=== PATIENT | female | born 1945 | race Caucasian/White ===

== ENCOUNTER 2017-09-18 06:45 | Observation (INO) | payer MEDICARE, BC ==
[~2017-09-18] VITALS: Ht 170.2 cm; Wt 54.0 kg
[2017-09-18 00:20] VITALS: BP 131/77
--- NOTE | 2017-09-18 07:00 | NUR ---
PT IMMEDIATELY TO TX ROOM VIA WC.
[2017-09-18] MEDS ORDERED: METO50TA52 PO (07:05)
[2017-09-18] MEDS ORDERED: ISOSORB MONO30 MG PO (07:06)
[2017-09-18] MEDS ORDERED: INDERAL 40MG TA40 MG PO (07:07)
[2017-09-18] MEDS ORDERED: VITAMIN C1000 MG PO (07:07)
[2017-09-18] MEDS ORDERED: ECK MAGNESIU250 MG PO (07:08)
[2017-09-18] MEDS ORDERED: [UNRECOGNIZED DRUG - OTHER] PO (07:08)
[2017-09-18] MEDS ORDERED: MEDDOSEPAK PO (07:09)
[2017-09-18] MEDS ORDERED: PROAIR HFA108 MCG/AC IN (07:10)
--- NOTE | 2017-09-18 07:15 | NUR ---
RT AT BEDSIDE WITH PT FOR NEB TX, ABG DRAWN. PT IS TACHYPNEIC, SPO2 96% ON ROOM AIR, NOTED WHEEZING IN RIGHT UPPER AND LOWER LUNG TOBIAS. PT SPEAKING IN 2-3 WORD PHRASES. FAMILY MEMBER ALSO AT BEDSIDE.
[2017-09-18 07:39] LABS: HEMATOCRIT 43.1 % (37.0-47.0); HEMOGLOBIN 14.1 g/dl (12.0-16.0); IMMATURE GRANULOCYTES 0.5 % (0.0-1.0); MEAN CORPUSCULAR HGB 31.4 pG CALC (26.0-32.0); MEAN CORPUSCULAR HGB CONC 32.7 g/L CALC (32.0-36.0); NEUT# 5.44 thou/uL (2.00-7.15); RED BLOOD COUNT 4.49 mill/uL (4.20-5.60); RED CELL DISTRI WIDTH 14.9 % (11.5-15.5)
--- NOTE | 2017-09-18 07:40 | NUR ---
PT RESTING IN STRETCHER IN NAD. PT SPEAKING IN FULL SENTENCES WITH NO SOB NOTED. RR 20, EXPIRATORY WHEEZES NOTED IN THE LEFT LOWER LOBE NOTED. IV FLUIDS AND IV ABX INFUSING WITH NO DIFFICULTY. FAMILY AT BEDSIDE. PT AND FAMILY AWARE OF PLAN OF CARE AND WAIT TIME. CALL NORMAN WITHIN REACH, WILL CONTINUE TO MONITOR.
[2017-09-18 07:52] LABS: ANION GAP 16 (6-22 (CALC)); BUN 20 mg/dL (8-23); BUN/CREATININE RATIO 24 (12-20 (CALC)); CARBON DIOXIDE 23 mmol/l (22-30); CHLORIDE 103 mmol/l (95-108); CREATININE 0.8 mg/dL (0.5-1.0); GFR > 60 ML/MIN (>=60 (CALC)); GFR FOR AFR.AMER. > 60 ML/MIN (>=60 (CALC)); SODIUM 138 mmol/l (137-146)
--- NOTE | 2017-09-18 08:20 | NUR ---
AT BEDSIDE TO REASSESS PT.
--- NOTE | 2017-09-18 08:25 | NUR ---
PT RESTING COMFORTABLY IN STRETCHER IN NAD. PT RR 22, HEART RATE 95-105'S IN AFIB ON THE MONITOR. PT DENIES ANY PAIN AT THIS TIME. PT AWARE OF PLAN FOR ADMISSION. CALL NORMAN WITHIN REACH.
--- NOTE | 2017-09-18 08:43 | NUR ---
CALL PLACED TO MS, NURSE WILL CALL BACK FOR REPORT.
--- NOTE | 2017-09-18 09:05 | NUR ---
CALL PLACED TO MS, MS NURSE UNABLE TO TAKE REPORT AT THIS TIME. WILL CALL BACK.
--- NOTE | 2017-09-18 09:10 | NUR ---
PT LAUGHING AND TALKING WITH FAMILY. DENIES ANY NEEDS AT THIS TIME. CALL NORMAN WITHIN REACH.
--- NOTE | 2017-09-18 09:15 | NUR ---
REPORT CALLED TO JUAN GARLAND.
--- NOTE | 2017-09-18 09:25 | NUR ---
PT AMBULATED TO BATHROOM WITH A STEADY GAIT. PT DENIES ANY SOB, BUT REPORTS SOME WEAKNESS.
--- NOTE | 2017-09-18 09:30 | NUR ---
Admission Note Report Given to: IRENE Transported by: X Wheelchair Stretcher Transported with: X Nurse Transporter X Patent IV O2 X Parking Ramp Attendant PT TO ROOM 268 VIA WHEELCHAIR IN STABLE CONDITION.
[2017-09-18 09:34] VITALS: BP 111/70
--- NOTE | 2017-09-18 09:35 | NUR ---
PT ARRIVED TO FLOOR VIA WHEELCHAIR IN STABLE CONDITION ACCOMPANIED BY SHILPI HAILE AND FAMILY MEMBER;PT AMBULATED TO STANDING SCALE AND BEDSIDE WITH WEAK GAIT AND 1 PERSON ASSIST;PT ORIENTED TO ROOM AND CALL LIGHT SYSTEM;VS AND WT OBTAINED BY BRADY MURPHY;PT ALERT AND ORIENTED X3;ASSESSMENT COMPLETED;PT REPORTS INCREASED WEAKNESS AND SOB X5 DAYS,IT SHOULD BE NOTED THAT PT IS VISITING FROM [place];RESPIRATIONS EVEN AND UNLABORED,SHALLOW ON RA;O2 SATS @ 93%;NON-PRODUCTIVE COUGH;ABDOMEN SOFT ON PALPATION AND ACTIVE IN ALL 4 QUADRANTS,LAST BM 09/17/17;STRONG PEDAL PULSES;#20G TO LAC FLUSHED AND PATENT,SITE APPEARS HEALTHY;TELE MONITOR IN PLACE;SKIN INTACT;ALL SAFETY PRECAUTIONS REINFORCED WITH BED IN THE LOWEST;ENCOURAGED TO CALL FOR ASSISTANCE IF NEEDED;CALL LIGHT IN REACH;WILL CONTINUE TO MONITOR
[2017-09-18 11:25] VITALS: BP 97/60
--- NOTE | 2017-09-18 12:10 | NUR ---
PT RESTING IN SEMI FOWLERS POSITION;RESPIRATIONS APPEAR EVEN AND UNLABORED ON RA;PT DENIES ANY CURRENT PAIN OR NEEDS;TELE MONITOR IN PLACE;IV SITE PATENT;NICOTINE PATCH APPLIED TO [place];ENCOURAGED PT TO CALL FOR ASSISTANCE IF NEEDED;CALL LIGHT IN REACH;WILL CONTINUE TO MONITOR
[2017-09-18 13:00] LABS: MAGNESIUM 2.2 mg/dL (1.6-2.3)
[2017-09-18 14:53] VITALS: BP 95/49
--- NOTE | 2017-09-18 16:14 | NUR ---
PT APPEARS TO BE SLEEPING IN SEMI FOWLERS POSITION;NO S/S OF DISTRESS NOTED;RESPIRATIONS APPEAR EVEN AND UNLABORED ON RA;TELE MONITOR IN PLACE;IV SITE APPEARS PATENT;BED IN THE LOWEST POSITION WITH CALL LIGHT IN REACH;WILL CONTINUE TO MONITOR
--- NOTE | 2017-09-18 19:20 | NUR ---
RECEIVED CHANGE OF SHIFT REPORT FROM JUAN FROST. PT ALERT AND ORIENTED X3 AND LYING IN BED. DENIES PAIN OR DISCOMFORT. NO APPARENT ACUTE DISTRESS NOTED. WILL CONTINUE TO MONITOR.
[2017-09-18 19:45] VITALS: BP 127/66; BP 95/49
--- NOTE | 2017-09-19 04:00 | NUR ---
NO APPARENT ACUTE CHANGES NOTED IN PT'S CONDITION
[2017-09-19 04:39] VITALS: BP 115/65
[2017-09-19 05:36] LABS: HEMATOCRIT 39.3 % (37.0-47.0); HEMOGLOBIN 13.1 g/dl (12.0-16.0); MEAN CELL VOLUME 95.2 fL CALC (80.0-100.0); MEAN CORPUSCULAR HGB 31.7 pG CALC (26.0-32.0); MEAN CORPUSCULAR HGB CONC 33.3 g/L CALC (32.0-36.0); RED BLOOD COUNT 4.13 mill/uL (4.20-5.60); RED CELL DISTRI WIDTH 14.6 % (11.5-15.5)
--- NOTE | 2017-09-19 07:00 | NUR ---
REPORT RECEIVED FROM SHILPI REYES;PT APPEARS TO BE RESTING IN SEMI FOWLERS POSITION;INTRODUCED SELF TO PT AND POC DISCUSSED;PT DENIES ANY CURRENT PAIN OR NEEDS;RESPIRATIONS APPEAR EVEN AND UNLABORED;TELE MONITOR IN PLACE;ENCOURAGED PT TO CALL FOR ASSISTANCE IF NEEDED;FALL PRECAUTIONS IN PLACE WITH BED IN THE LOWEST POSITION;CALL LIGHT IN REACH;WILL CONTINUE TO MONITOR
--- NOTE | 2017-09-19 08:00 | NUR ---
PT RESTING IN SEMI FOWLERS POSITION;VS OBTAINED AND ASSESSMENT COMPLETED;RESPIRATIONS EVEN AND UNLABORED ON 02 @ 2L VIA NC,CLEAR/DIMINISHED LUNG SOUNDS NOTED;NON-PRODUCTIVE COUGH NOTED;ABDOMEN SOFT ON PALPATION AND ACTIVE IN ALL 4 QUADRANTS;#20G TO LAC FLUSHED AND PATENT,SITE APPEARS HEALTHY;TELE MONITOR IN PLACE;SKIN INTACT;NICOTINE PATCH APPLIED TO RIGHT SHOULDER;PT DENIES ANY CURRENT NEEDS AND IS ENCOURAGED TO CALL FOR ASSISTANCE IF NEEDED;CALL LIGHT IN REACH;WILL CONTINUE TO MONITOR
[2017-09-19 08:07] VITALS: BP 113/77
[2017-09-19 09:17] LABS: URINE BILIRUBIN - DIPSTICK NEGATIVE (NEGATIVE); URINE BLOOD DIPSTICK NEGATIVE (NEGATIVE); URINE COLOR YELLOW; URINE GLUCOSE - DIPSTICK NEGATIVE (NEGATIVE); URINE KETONE NEGATIVE (NEGATIVE); URINE LEUK ESTERASE NEGATIVE (NEGATIVE); URINE NITRITE - DIPSTICK NEGATIVE (Negative); URINE PROTEIN - DIPSTICK NEGATIVE (NEG-TRACE); URINE SPECIFIC GRAVITY <=1.005; URINE UROBILINOGEN - DIPSTICK 0.2 E.U./dL (0.2)
[2017-09-19 09:30] LABS: URINE CLARITY CLEAR
--- NOTE | 2017-09-19 10:12 | NUR ---
PT COMPLAINS OF HEADACHE PAIN AND COUGH AND REQUESTS MEDICATION;PT MEDICATED WITH PRN TYLENOL 650MG PO AND ROBITUSSIN 10ML PO,WILL CONTINUE TO MONITOR FOR EFFECTIVENESS
[2017-09-19 11:38] VITALS: BP 93/52
--- NOTE | 2017-09-19 12:30 | NUR ---
PT APPEARS TO BE SLEEPING IN SEMI FOWLERS POSITION;NO S/S OF DISTRESS NOTED;RESPIRATIONS EVEN AND UNLABORED ON RA;TELE MONITOR IN PLACE;NO CHANGE IN ASSESSMENT AT THIS TIME;CALL LIGHT IN REACH;WILL CONTINUE TO MONITOR
[2017-09-19] MEDS ORDERED: ZITHROMAX250 MG PO (13:06)
[2017-09-19] MEDS ORDERED: PREDNISONE10 MG PO (13:06)
--- NOTE | 2017-09-19 13:30 | NUR ---
OXYGEN QUALIFICATION TEST PERFORMED BY [facility];LOWEST 02 SATS 89% ON RA
--- NOTE | 2017-09-19 14:50 | NUR ---
ALL DISCHARGE INFORMATION GIVEN AT THIS TIME;PRESCRIPTIONS DISCUSSED IN DEPTH;IV SITE REMOVED WITH CATHETER INTACT;WHEELCHAIR TO BE PROVIDED FOR DISCHARGE;PT DENIES ANY OTHER CURRENT NEEDS;AWAITING TRANSPORTATION HOME
[2017-09-19] MEDS ORDERED: PROAIR HFA108 MCG/AC IN (14:53)
--- NOTE | 2017-09-19 15:24 | NUR ---
Discharge instructions given. Patient verbalizes understanding of same. Discharged in stable condition via Wheelchair to Home with family. All belongings sent with pt.
== END 2017-09-19 15:26 | disposition home or self-care (01) ==
LOC: ED 06:45 → ED-I 08:18 → ED 08:29 → MS2 08:30
PROVIDERS: Family Medicine; Nurse Practitioner Family; ADMIT Internal Medicine; ATTEND Internal Medicine
DX: J44.1 Chronic obstructive pulmonary disease with (acute) exacerbation (principal); R09.02 Hypoxemia; I48.0 Paroxysmal atrial fibrillation; I42.9 Cardiomyopathy, unspecified; F17.210 Nicotine dependence, cigarettes, uncomplicated; Z68.1 Body mass index [BMI] 19.9 or less, adult; R06.02 Shortness of breath